=== PATIENT | male | born 1985 | race Caucasian/White ===

== ENCOUNTER 2021-09-28 02:46 | Emergency (ER) | payer SELFPAY ==
[~2021-09-28] VITALS: Ht 180.3 cm; Wt 90.7 kg
[2021-09-28 04:10] VITALS: BP 162/94
[2021-09-28] MEDS ORDERED: LIDOCAINE 1% INJ 20 ML VIAL INJ ONE (06:15)
[2021-09-28] MEDS ORDERED: cefTRIAXone 1,000 MG VIAL IM ONE (06:15)
--- NOTE | 2021-09-28 06:25 | ED Integumentary General ---
General Chief Complaint: General Problems/Pain Stated Complaint: POSS INFECTION,BIT BY DOG Nursing Triage Note: Pt arrives via POV from home for c/o puss drainage to the right cheek. Pt reports dog bite to the right cheek et lip, had sutures placed on 09/25, states it is possibly infected. Pt also reports twelve stiches to the lip. Source: patient Exam Limitations: no limitations History of Present Illness Date Seen by Provider: Sep 28, 2021 Time Seen by Provider: 06:00 Initial Comments Patient to the ER by EMS with chief complaint of redness swelling increased pain and purulence coming from the wound on the right side of his face. He was bitten by his own dog after getting out of alf on the face and went to urgent care where they flushed out and stitched it. He was written for some antibiotics but because he does not have transportation and had ankle surgery recently he cannot walk to the pharmacy. 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 He is not having any fevers chills nausea vomiting or diarrhea. He has been using warm washcloths in soapy water as well as Neosporin. Allergies and Home Medications Allergies Coded Allergies: No Known Drug Allergies (Unverified , 09/28/21) Patient Home Medication List Home Medication List Reviewed: Yes Review of Systems Review of Systems Constitutional: No chills, No diaphoresis EENTM: No ear discharge, No ear pain Respiratory: No cough, No short of breath Cardiovascular: No edema, No palpitations Gastrointestinal: No abdominal pain, No nausea, No vomiting Genitourinary: No discharge, No dysuria Musculoskeletal: No back pain, No joint pain All Other Systems Reviewed Negative Unless Noted: Yes Past Rmshrlo-Mfsfsl-Tyoacy Hx Patient Social History Tobacco Use?: No Use of E-Cig and/or Vaping dev: No Substance use?: Yes Substance type: Marijuana Alcohol Use?: No Pt feels they are or have been: No Immunizations Up To Date Influenza Vaccine Up-to-Date: No; Not Current Physical Exam Vital Signs Vital Signs - First Documented 09/28/21 04:10 Temp 36.9 Pulse 83 Resp 18 B/P (MAP) 162/94 (116) Pulse Ox 99 O2 Delivery Room Air Capillary Refill : Less Than 3 Seconds General Appearance: WD/WN, no apparent distress HEENT: PERRL/EOMI, pharynx normal Neck: full range of motion, supple, normal inspection Cardiovascular: normal peripheral pulses, regular rate, rhythm Respiratory: lungs clear, normal breath sounds, no respiratory distress, no accessory muscle use Gastrointestinal: normal bowel sounds, non tender Extremities: non-tender, normal inspection, normal capillary refill Neurologic/Psychiatric: alert, normal mood/affect, oriented x 3 Skin: other (Closed 5 cm wound on the right cheek linear with 7 stitches simple interrupted. Indurated, tender to palpation and with small amount of purulence expressed from the middle of the wound.) Procedures/Interventions Progress Removed 3 sutures from his anterior wound on the corner of the right side of the mouth and were not able to express any discharge. Removed 2 sutures from the linear laceration over the right cheek and were able to express a bowel 20 cc of thin purulent material. Wound was cleaned and left open to heal by secondary intent. Progress/Results/Core Measures Results/Orders My Orders Orders - CARMENCITA SALAZAR Ceftriaxone (Rocephin) (09/28/21 06:15) Lidocaine 1% Inj 20 Ml (Xylocaine 1% Inj (09/28/21 06:15) Vital Signs/I&O 09/28/21 04:10 Temp 36.9 Pulse 83 Resp 18 B/P (MAP) 162/94 (116) Pulse Ox 99 O2 Delivery Room Air Blood Pressure Mean: 116 Progress Progress Note : Time: 06:38 Progress Note Wound infection with likely abscess. Patient states he did not receive a tetanus vaccine so we will get him one today. Rocephin. Good Rx coupon for about $15 for Bactrim and the patient states he can afford this. The dog is with his mother and he states has had no problems or symptoms of rabies. He says the dog was spooked but shortly afterwards recognized him again and has been nothing but friendly. Recommended 10 days quarantine. Departure Impression Primary Impression: Infected dog bite of face Qualified Codes: S01.85XA - Open bite of other part of head, initial encounter; L08.9 - Local infection of the skin and subcutaneous tissue, unspecified; W54.0XXA - Bitten by dog, initial encounter Disposition: 01 HOME, SELF-CARE Condition: Stable Departure-Patient Inst. Decision time for Depature: 06:40 Referrals: NO,LOCAL PHYSICIAN (PCP/Family) Primary Care Physician Patient Instructions: Animal Bites (DC) Add. Discharge Instructions: The dog needs to stay in quarantine to be watched for 10 days. If at the end of that 10 days he is having no symptoms of rabies then you do not need to worry about rabies. However if the dog begins to act bizarrely, territorial your have other problems you need to return to the nearest ER promptly for rabies prophylaxis. 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 A prescription was sent to [facility] across the street. Tylenol and Motrin as necessary for pain. Warm moist compresses several times a day to improve blood flow to your cheek as well as reduce pain. If you are seeing increased swelling, redness or pain after 3 days of antibiotics then return to the doctor for reevaluation. If you develop a fever, nausea, sweats or other worrisome symptoms then you should promptly return to the ER for reevaluation. Continue to clean the wound with regular soap and water, showers and express any drainage. It is okay to cover with a loose gauze dressing to catch drainage. I do not recommend cleaning with chlorhexidine, iodine, hydrogen peroxide or alcohol as this will slow wound healing. I also do not recommend using Vaseline or triple antibiotic ointments as this may plug the wound and keep it from draining. All discharge instructions reviewed with patient and/or family. Voiced understanding. Scripts Sulfamethoxazole/Trimethoprim (Bactrim Ds Tablet) 1 Each Tablet 1 EACH PO BID for 10 Days, #20 TAB 0 Refills Prov: CARMENCITA SALZAAR 09/28/21 CARMENCITA SALAZAR Sep 28, 2021 06:25
[2021-09-28] MEDS ORDERED: SULF1TAB38 PO (06:45)
[2021-09-28] MEDS ORDERED: TETANUS,DIPTH,PERTUSS P/F (BOOSTRIX) 0.5 ML VIAL IM ONE (06:45)
== END 2021-09-28 07:10 | disposition home or self-care (01) ==
LOC: ER 02:55
DX: S01.451A Open bite of right cheek and temporomandibular area, initial encounter (principal); L08.9 Local infection of the skin and subcutaneous tissue, unspecified; W54.0XXA Bitten by dog, initial encounter
CPT/HCPCS: 90715; 99284

== ENCOUNTER 2022-01-17 15:49 | Emergency (ER) | payer SELFPAY ==
[~2022-01-17 15:49] MED LIST: SULF1TAB38 PO
[2022-01-17 15:55] VITALS: BP 153/99
--- NOTE | 2022-01-17 16:02 | ED Integumentary General ---
General Chief Complaint: Bite-Animal/Human/Insect Stated Complaint: SPIDER BITE Source: patient Exam Limitations: no limitations History of Present Illness Date Seen by Provider: Jan 17, 2022 Time Seen by Provider: 16:00 Initial Comments Patient is a 36-year-old male who presents to the ED for for rash to the right lateral lower abdomen. This started 3 days ago. Woke up with a small puncture and localized redness. Noted some bruising today. He was concerned for possible brown recluse bite. Initially denies of any specific trauma but then he states few days ago he hit his side with a door handle which caused severe pain. Denies fever, chills, nausea, vomiting, diarrhea. Denies of any obvious tick bite. Patient has been applying Neosporin Allergies and Home Medications Allergies Coded Allergies: No Known Drug Allergies (Unverified , 09/28/21) Patient Home Medication List Home Medication List Reviewed: Yes Sulfamethoxazole/Trimethoprim (Bactrim Ds Tablet) 1 Each Tablet, 1 EACH PO BID Prescribed by: CARMENCITA SALAZAR on 09/28/21 0645 Review of Systems Review of Systems Constitutional: No chills, No diaphoresis, No malaise, No weakness EENTM: No blurred vision, No double vision, No mouth pain, No mouth swelling Respiratory: No dyspnea on exertion Cardiovascular: No chest pain Gastrointestinal: No abdominal pain, No diarrhea, No nausea, No vomiting Genitourinary: No decreased output, No discharge Musculoskeletal: No back pain, No joint pain Skin: change in color, rash All Other Systems Reviewed Negative Unless Noted: Yes Physical Exam Vital Signs Vital Signs - First Documented 01/17/22 15:55 Temp 36.0 Pulse 85 Resp 16 B/P (MAP) 153/99 (117) Capillary Refill : General Appearance: WD/WN, no apparent distress HEENT: PERRL/EOMI, normal ENT inspection, TMs normal, pharynx normal Neck: non-tender, full range of motion, supple, normal inspection Cardiovascular: regular rate, rhythm, no edema, no gallop, no JVD Respiratory: chest non-tender, lungs clear, normal breath sounds, no respiratory distress, no accessory muscle use Gastrointestinal: normal bowel sounds, non tender, soft Extremities: normal range of motion, non-tender, normal inspection Skin: other (Very small erythematous papule with localized redness. No functional mass. Bruising medially without any tenderness. No necrotic tissue. Located to the right lateral abdomen) Progress/Results/Core Measures Results/Orders Vital Signs/I&O 01/17/22 15:55 Temp 36.0 Pulse 85 Resp 16 B/P (MAP) 153/99 (117) Departure Communication (PCP) Possible bug bite. Denies of any known tick bite or obvious spider bite. Woke up with a small erythematous papul that is small and indurated. No function mass. Bruising medially and he states he hit a door handle while walking. This likely resulted in the bruising. No necrotic tissue. Recommend Neosporin at this time. No cellulitic type infection. If any worsening redness and swelling or increase in size return back to ED for further evaluation. Patient has no chills, body aches, joint pain, fever, headache, chest pain Impression Primary Impression: Rash Disposition: HOME, SELF-CARE Condition: Stable Departure-Patient Inst. Decision time for Depature: 16:01 Referrals: [facility] NO,LOCAL PHYSICIAN (PCP) Primary Care Physician Patient Instructions: Skin Rash Add. Discharge Instructions: If any worsening rash return back to ED for further evaluation. Continue with Neosporin twice a day All discharge instructions reviewed with patient and/or family. Voiced understanding. KIERA GENTILE Jan 17, 2022 16:02
== END 2022-01-17 16:08 | disposition home or self-care (01) ==
LOC: EDUNIT# 15:49 → ER 15:51
DX: R21 Rash and other nonspecific skin eruption (principal)
CPT/HCPCS: 99281

== ENCOUNTER 2022-02-27 23:24 | Emergency (ER) | payer SELFPAY ==
[~2022-02-27] VITALS: Ht 180 cm; Wt 90.7 kg
[2022-02-27] MEDS ORDERED: AMOX875T2 PO (23:33)
--- NOTE | 2022-02-28 00:13 | ED Psychosocial ---
General Chief Complaint: Psych/Social Disorder Stated Complaint: FEELS FAINT Nursing Triage Note: c/o feeling faint/anxious, having reflux x1hr after taking abx. History of Present Illness Date Seen by Provider: Feb 28, 2022 Time Seen by Provider: 00:05 Initial Comments 26-year-old male is here with no significant PMH, and complaints of feeling anxious and stressed, with acid reflux after taking fluid and his antibiotics. Pt has also been having a sore throat. Pt has a history pof tonsillectomy. Denies chest pain, shortness of breath, abdominal pain, diarrhea, cough. Allergies and Home Medications Allergies Coded Allergies: No Known Drug Allergies (Unverified , 09/28/21) Patient Home Medication List Home Medication List Reviewed: Yes Amoxicillin (Amoxicillin) 875 Mg Tablet, Unknown Dose PO, (Reported) Entered as Reported by: ESTELLA DUMAS on 02/27/22 5868 Last Action: New Order Discontinued Medications Sulfamethoxazole/Trimethoprim (Bactrim Ds Tablet) 1 Each Tablet, 1 EACH PO BID Discontinued Reason: No Longer Taking Prescribed by: CARMENCITA SALAZAR on 09/28/21 0608 Last Action: Discontinued Review of Systems Constitutional: no symptoms reported EENTM: throat pain Respiratory: no symptoms reported Cardiovascular: no symptoms reported Gastrointestinal: no symptoms reported Genitourinary: no symptoms reported Musculoskeletal: no symptoms reported Skin: no symptoms reported Psychiatric/Neurological: Anxiety Past Hftjtxg-Rsrhss-Ymdvgd Hx Patient Social History Tobacco Use?: Yes Substance use?: Yes Substance type: Marijuana Alcohol Use?: Yes Alcohol type: Beer Alcohol Frequency: Once in a while Pt feels they are or have been: No Past Medical History Surgery/Hospitalization HX: sx: ORTHO, HEAD INJURY, TONSILS, FRANK, ANKLE, FOOT, anxiety Physical Exam Vital Signs - First Documented 02/27/22 23:29 Temp 36.7 Pulse 91 Resp 20 B/P (MAP) 144/105 (118) Pulse Ox 97 O2 Delivery Room Air Capillary Refill : Less Than 3 Seconds Height, Weight, BMI Height: '" Weight: lbs. oz. kg; 27.00 BMI Method: General Appearance: WD/WN, no apparent distress HEENT: PERRL/EOMI Neck: non-tender, full range of motion, supple Respiratory: chest non-tender, lungs clear Cardiovascular: normal peripheral pulses, regular rate, rhythm, no edema Gastrointestinal: normal bowel sounds, non tender, soft Extremities: normal range of motion Neurologic/Psychiatric: no motor/sensory deficits, alert, normal mood/affect, oriented x 3 Appearance/Memory: appropriate appearance, neat Behavior/Eye Contact: cooperative, good eye contact, normal speech Thoughts/Hallucinations: normal thought pattern, no apparent hallucination Suicide Risk Suicide Risk Suicide Risk Level / RN Screen: Low Low Suicide Risk Level []Suicidal Ideation WITHOUT method, intent, plan or behavior more than a month ago []]Modifiable risk factors and strong protective factors []No reported history of suicidal ideation or behavior []Patient reports/exhibits symptoms consistent with psychosis []Patient reports a plan that would be unrealistic/impossible to complete and intent []Suicide attempt prior to arrival (Indicates at LEAST Low Suicide Risk, consider other risk factors) Moderate Suicide Risk Level: []Suicidal ideation with method, WITHOUT plan, intent or behavior in the past month []Multiple risk factors and few protective factors []Patient reports intent to follow through on plan to end life if allowed to leave hospital, and has attempted to elope from the hospital High Suicide Risk Level: [] Suicidal ideation with intent or intent with a plan in the past month [] Patient has harmed self or attempted suicide while in the hospital [] Patient has hx of or current Command Auditory hallucinations to harm self or others that they follow without hesitation [] Patient refuses to disclose plan, and indicates intent to complete [] Patient reports plan that is possible to accomplish and/or has means to complete Risk factors supporting recommendation: [] Non-compliance with treatment (acute or chronic) [] Patient has access to or owns firearms and/or stockpiled medications [] Hx Impulsive behavior [] Pending incarceration or homelessness [] Sexual abuse [] Family history and/or exposure to suicide [] Adverse childhood experiences [] Exposure to violence or negative socio-political cultural, and economic forces [] Current or hx of substance use/abuse [] Chronic physical pain or other acute medical problem (AIDS, COPD, Cancer, etc) [] Perceived burden on family or others [] Patient has attempted to elope [] Unable to answer and/or unable to identify [] Refuses to agree to a safety plan Protective Factors supporting recommendation: [] Identifies reasons for living [] Future plans/goals [] Engaged in work or School [] Good family support network [] Good social support network [] Responsibility to family [] Belief that suicide is immoral, against their buddhism beliefs [] High spirituality and involvement in spiritism community [] Fear of or dying due to pain and suffering [] Established outpt psychiatric services [] Unable to answer and/or unable to identify Risk Assessment Tool Score: Low Progress/Results/Core Measures Results/Orders Lab Results Laboratory Tests Test 02/28/22 00:50 02/28/22 01:22 Range/Units White Blood Count 11.7 H 4.3-11.0 10^3/uL Red Blood Count 4.98 4.30-5.52 10^6/uL Hemoglobin 16.1 13.3-17.7 g/dL Hematocrit 46 40-54 % Mean Corpuscular Volume 93 80-99 fL Mean Corpuscular Hemoglobin 32 25-34 pg Mean Corpuscular Hemoglobin Concent 35 32-36 g/dL Red Cell Distribution Width 12.0 10.0-14.5 % Platelet Count 240 130-400 10^3/uL Mean Platelet Volume 9.3 9.0-12.2 fL Immature Granulocyte % (Auto) 0 % Neutrophils (%) (Auto) 56 42-75 % Lymphocytes (%) (Auto) 32 12-44 % Monocytes (%) (Auto) 9 0-12 % Eosinophils (%) (Auto) 2 0-10 % Basophils (%) (Auto) 1 0-10 % Neutrophils # (Auto) 6.6 1.8-7.8 10^3/uL Lymphocytes # (Auto) 3.7 1.0-4.0 10^3/uL Monocytes # (Auto) 1.0 0.0-1.0 10^3/uL Eosinophils # (Auto) 0.2 0.0-0.3 10^3/uL Basophils # (Auto) 0.1 0.0-0.1 10^3/uL Immature Granulocyte # (Auto) 0.1 0.0-0.1 10^3/uL Urine Color YELLOW Urine Clarity CLEAR Urine pH 6.0 5-9 Urine Specific [place] 1.025 H 1.016-1.022 Urine Protein NEGATIVE NEGATIVE Urine Glucose (UA) NEGATIVE NEGATIVE Urine Ketones NEGATIVE NEGATIVE Urine Nitrite NEGATIVE NEGATIVE Urine Bilirubin NEGATIVE NEGATIVE Urine Urobilinogen 0.2 < = 1.0 MG/DL Urine Leukocyte Esterase NEGATIVE NEGATIVE Urine RBC (Auto) NEGATIVE NEGATIVE Urine RBC NONE /HPF Urine WBC NONE /HPF Urine Squamous Epithelial Cells RARE /HPF Urine Crystals NONE /LPF Urine Bacteria NEGATIVE /HPF Urine Casts NONE /LPF Urine Mucus NEGATIVE /LPF Urine Culture Indicated NO Sodium Level 141 135-145 MMOL/L Potassium Level 4.2 3.6-5.0 MMOL/L Chloride Level 102 98-107 MMOL/L Carbon Dioxide Level 24 21-32 MMOL/L Anion Gap 15 H 5-14 MMOL/L Blood Urea Nitrogen 15 7-18 MG/DL Creatinine 1.40 H 0.60-1.30 MG/DL Estimat Glomerular Filtration Rate 66 BUN/Creatinine Ratio 11 Glucose Level 90 70-105 MG/DL Calcium Level 9.3 8.5-10.1 MG/DL Corrected Calcium 9.0 8.5-10.1 MG/DL Total Bilirubin 0.3 0.1-1.0 MG/DL Aspartate Amino Transf (AST/SGOT) 25 5-34 U/L Alanine Aminotransferase (ALT/SGPT) 22 0-55 U/L Alkaline Phosphatase 72 40-136 U/L Total Protein 7.2 6.4-8.2 GM/DL Albumin 4.4 3.2-4.5 GM/DL Urine Opiates Screen NEGATIVE NEGATIVE Urine Oxycodone Screen NEGATIVE NEGATIVE Urine Methadone Screen NEGATIVE NEGATIVE Urine Propoxyphene Screen NEGATIVE NEGATIVE Urine Barbiturates Screen NEGATIVE NEGATIVE Ur Tricyclic Antidepressants Screen NEGATIVE NEGATIVE Urine Phencyclidine Screen NEGATIVE NEGATIVE Urine Amphetamines Screen NEGATIVE NEGATIVE Urine Methamphetamines Screen NEGATIVE NEGATIVE Urine Benzodiazepines Screen NEGATIVE NEGATIVE Urine Cocaine Screen NEGATIVE NEGATIVE Urine Cannabinoids Screen POSITIVE H NEGATIVE Serum Alcohol < 10 <10 MG/DL Group A Streptococcus Screen NEGATIVE NEGATIVE My Orders Orders - GUSTAVO VILLEGAS MD Alcohol (02/28/22 00:42) Cbc With Automated Diff (02/28/22 00:42) Comprehensive Metabolic Panel (02/28/22 00:42) Drug Screen Stat (Urine) (02/28/22 00:42) Ua Culture If Indicated (02/28/22 00:42) Covid 19 Inhouse Test (02/28/22 00:43) Influenza A And B By Pcr (02/28/22 00:43) Rapid Strep A Screen (02/28/22 01:05) Vital Signs/I&O 02/27/22 23:29 Temp 36.7 Pulse 91 Resp 20 B/P (MAP) 144/105 (118) Pulse Ox 97 O2 Delivery Room Air Blood Pressure Mean: 118 Progress Progress Note : Progress Note 1. ANXIETY & MARIJUANA ABUSE: - COVID Test/ Rapid Flu: - Labs unremarkable - UA/ UDS: positive for marijuana -I recommended hydroxyzine or Ativan as a one-time medication to help calm him down, but patient refused saying he does not want to take any medications.- - Follow-up with PCP Departure Impression Primary Impression: Anxiety Disposition: 01 HOME, SELF-CARE Condition: Stable Departure-Patient Inst. Referrals: NO,LOCAL PHYSICIAN (PCP/Family) Primary Care Physician Patient Instructions: Anxiety, Adult (DC) Add. Discharge Instructions: -I recommended hydroxyzine or Ativan as a one-time medication to help calm him down, but patient refused saying he does not want to take any medications.- - Follow-up with PCP All discharge instructions reviewed with patient and/or family. Voiced understanding. GUSTAVO VILLEGAS MD Feb 28, 2022 00:12
[2022-02-28 01:02] LABS: BILIRUBIN,URINE NEGATIVE (NEGATIVE); CLARITY,URINE CLEAR; COLOR,URINE YELLOW; GLUCOSE, URINE (UA) NEGATIVE (NEGATIVE); KETONES,URINE NEGATIVE (NEGATIVE); LEUKOCYTE ESTERASE ,URINE NEGATIVE (NEGATIVE); NITRITE,URINE NEGATIVE (NEGATIVE); PROTEIN,URINE NEGATIVE (NEGATIVE)
[2022-02-28 01:15] LABS: BASOPHILS # (AUTO) 0.1 10^3/uL (0.0-0.1); BASOPHILS % (AUTO) 1 % (0-10); EOSINOPHILS # (AUTO) 0.2 10^3/uL (0.0-0.3); EOSINOPHILS % (AUTO) 2 % (0-10); HEMATOCRIT 46 % (40-54); HEMOGLOBIN 16.1 g/dL (13.3-17.7); LYMPHOCYTES # (AUTO) 3.7 10^3/uL (1.0-4.0); LYMPHOCYTES % (AUTO) 32 % (12-44); MEAN CORPUSCULAR HEMOGLOBIN 32 pg (25-34); MEAN CORPUSCULAR HGB CONC 35 g/dL (32-36); MEAN CORPUSCULAR VOLUME 93 fL (80-99); MEAN PLATELET VOLUME 9.3 fL (9.0-12.2); MONOCYTES % (AUTO) 9 % (0-12); NEUTROPHILS # (AUTO) 6.6 10^3/uL (1.8-7.8); NEUTROPHILS % (AUTO) 56 % (42-75); PLATELET COUNT 240 10^3/uL (130-400); WHITE BLOOD COUNT 11.7 10^3/uL (4.3-11.0)
[2022-02-28 01:18] LABS: BACTERIA,URINE NEGATIVE /HPF; SQUAMOUS EPITHELIAL CELL,UR RARE /HPF
[2022-02-28 01:24] LABS: ALBUMIN 4.4 GM/DL (3.2-4.5); CHLORIDE 102 MMOL/L (98-107); POTASSIUM 4.2 MMOL/L (3.6-5.0); SODIUM 141 MMOL/L (135-145)
[2022-02-28 01:25] LABS: CALCIUM 9.3 MG/DL (8.5-10.1)
[2022-02-28 01:26] LABS: GLUCOSE 90 MG/DL (70-105); TOTAL PROTEIN 7.2 GM/DL (6.4-8.2)
[2022-02-28 01:27] LABS: CARBON DIOXIDE 24 MMOL/L (21-32)
[2022-02-28 01:28] LABS: BILIRUBIN,TOTAL 0.3 MG/DL (0.1-1.0)
[2022-02-28 01:30] LABS: ALKALINE PHOSPHATASE 72 U/L (40-136); GFR ESTIMATED 66
[2022-02-28 01:31] LABS: BUN/CREATININE RATIO 11
[2022-02-28 01:33] LABS: ALANINE AMINOTRANSFERASE 22 U/L (0-55)
[2022-02-28 01:35] LABS: AMPHETAMINE SCREEN, URINE NEGATIVE (NEGATIVE); BARBITURATE SCREEN URINE NEGATIVE (NEGATIVE); BENZODIAZEPINES SCREEN URINE NEGATIVE (NEGATIVE); CANNABINOID SCREEN, URINE POSITIVE (NEGATIVE); COCAINE SCREEN URINE NEGATIVE (NEGATIVE); METHADONE STAT NEGATIVE (NEGATIVE); OPIATE SCREEN URINE NEGATIVE (NEGATIVE); OXYCODONE STAT NEGATIVE (NEGATIVE); PROPOXYPHENE STAT NEGATIVE (NEGATIVE); TRICYCLIC ANTIDEPRESSANTS SCRE NEGATIVE (NEGATIVE)
[2022-02-28 03:32] VITALS: BP 135/95
== END 2022-02-28 03:33 | disposition home or self-care (01) ==
LOC: EDUNIT# 23:24 → ER 23:27
DX: F41.9 Anxiety disorder, unspecified (principal); Z72.0 Tobacco use
CPT/HCPCS: 80053; 80306; 81000; 85025; 87430; 99283; G0480; 36415; 80320